=== PATIENT | female | born 1990 | race Caucasian/White ===

== ENCOUNTER → 2020-01-13 | Outpatient (CLI) | payer OTHER ==
[~2020-01-13] MED LIST: CEPHALEXIN500 M1 PO; CIPRO 500MG TA500 MG PO; LORTAB 5/500 501 TAB PO; MOTRIN 800800 MG/TAB PO; NAPROSYN500 MG PO; NO HOME MEDICATIONS; NORCO 325 MG-51 TAB PO; NORCO PO; PERCOCET 325 MG1 TA2 PO; PHENERGAN 25 TA25 MG PO; PRENATAL1 TA1 PO; PRENATAL1 TA7 PO
== END ==
LOC: ZCOL.LAB 16:11
DX: Z20.828 Contact with and (suspected) exposure to other viral communicable diseases (principal); R50.9 Fever, unspecified

== ENCOUNTER 2020-02-27 07:21 | Inpatient (IN) | payer OTHER ==
[2020-02-27] VITALS (63 sets, daily range): BP systolic 81–137; BP diastolic 50–81; PULSE 63–114; TEMP 97.8–101.6
[~2020-02-27] VITALS: Ht 172.7 cm; Wt 109.5 kg
--- NOTE | 2020-02-27 07:35 | NUR ---
Pt arrives on unit ambulatory with FOB for IOL. Changed into clean gown. EFM and toco applied. VSS. Denies vaginal bleeding, LOF, regular ctx and reports GFM. IV started in LH. Labs drawn. LR infusing. Admission assessment completed. Consents signed. Pt updated on POC. Bed locked in low position. Call light within reach. No questions or concerns at this time.
[2020-02-27 08:34] LABS: BASO # 0.1 (0.0-0.2); BASO % 0.4 % (0.0-2.0); EOS # 0.2 (0.0-0.7); EOS % 1.3 % (0-4.0); GRAN % 68.1 % (42.2-75.2); HEMATOCRIT 38.6 % (37.0-47.0); HEMOGLOBIN 12.8 g/dl (12.5-16.0); LYMPH # 3.2 (1.2-3.4); LYMPH % 21.9 % (20.0-51.0); MEAN CELL VOLUME 90 fl (80.0-100.0); MEAN CORPUSCULAR HEMOGLOBIN 30 pg (27.0-31.0); MEAN CORPUSCULAR HGB CONC 33 g/dl (33.0-37.0); MEAN PLATELET VOLUME 10.5 fl (7.4-10.4); MONO # 1.1 (0.1-0.6); MONO % 7.7 % (1.7-9.3); PLATELET COUNT 442 K/mm3 (130-400); RED BLOOD COUNT 4.27 M/mm3 (4.10-5.30); REDCELL DISTRIBUTION WIDTH-CV 13.1 % (11.5-14.5)
--- NOTE | 2020-02-27 08:43 | NUR ---
RN at bedside. Pt states feeling cramps but denies ctx. Difficulty interprettating FHR due to external ctx monitor. RN at bedside palpating fundus. 0844-Pt states feeling cramping sensation. Palpattion of fundus per this RN mild. No FHR deceleration noted during chio and resting phase. Pt repositioned LL with LR bolus infusing. TOCO monitor readjusted.
--- NOTE | 2020-02-27 11:23 | NUR ---
Pt up to bathroom and back to bed for epidural placement. Difficulty tracing FHR due to maternal position. Rn at bedside adjusting monitors. FHR audible.
--- NOTE | 2020-02-27 21:30 | NUR ---
2129- LIZZIE Stuart at the bedside for assessment of the epidural. 2134- Assisted pt up to sitting on the edge of the bed for epidural replacement. SPO monitor started. EFM intermittently tracing maternal HR as correlates with SPO2 monitor. 2146- Single shot given per LIZZIE Stuart. See anesthesia records for details. 2148- Test dose given per LIZZIE Stuart. See anesthesia records for details. 2158- Assisted pt back to supine with right wedge position. EFM and toco monitors adjusted.
[2020-02-28] VITALS (24 sets, daily range): BP systolic 95–123; BP diastolic 51–68; PULSE 74–109; TEMP 97.5–97.8
--- NOTE | 2020-02-28 02:31 | NUR ---
0231- SVE by this RN +2. Dr. Brower notified and on his way to hospital for delivery. 0238- Knox removed without complications. 0246- Dr. Brower at the bedside. Pt set up for delivery. 0248- Pushing started. 0251- of viable male . placed on mom's abdomen. Cord clamped and cut. Care of the given to nursery RN at the bedside. 0253- of placenta. Pitocin started at 333ml/hr per order and protocol. Fundus firm and lochia WNL.
--- NOTE | 2020-02-28 05:35 | NUR ---
Pt up to the bathroom with standby assist and without complications. Pt was able to void. Fe-care done. Pt transferred to room 208 ambulatory. Oriented to room, bed and call light within reach.
--- NOTE | 2020-02-28 20:00 | NUR ---
PT HAS A LOOSE SOUNDING COUGH- PT STATES SHE HAS ALLERGIES- LUNGS SOUND SLIGHTLY COARSE. PT STATES COUGH HAS NOT GOTTEN WORSE
[2020-02-29] MEDS ORDERED: MOTRIN 800800 MG/TAB PO (08:03)
[2020-02-29 08:55] VITALS: BP 108/60; PULSE 80; TEMP 97.4
--- NOTE | 2020-02-29 11:28 | NUR ---
Initial visit; Parents thanked Tape Sewing Machine Operator for offering congratulations and God's blessings for the of their son. Tape Sewing Machine Operator thanked family for choosing [facility].
--- NOTE | 2020-02-29 11:29 | NUR ---
Initial visit attempt; Nurse with family, Leak Detection Engineer left card of congratulations for the of their daughter and information regarding the availability of spiritual care at our hospital.
--- NOTE | 2020-02-29 11:31 | NUR ---
Initial visit; Parents thanked Operators Teacher for offering congratulations for the of their daughter. Operators Teacher offered God's blessings and thanked family for choosing [facility].
== END 2020-02-29 10:50 | disposition home or self-care (01) | DRG 807 ==
LOC: LDR 07:21 → OB 07:21
PROVIDERS: ADMIT Obstetrics & Gynecology
PROC: 10E0XZZ Delivery of Products of Conception, External Approach (ICD-10-PCS; principal; 2020-02-28)
PROC: 10907ZC Drainage of Amniotic Fluid, Therapeutic from Products of Conception, Via Natural or Artificial Opening (ICD-10-PCS; 2020-02-28)
DX: O69.81X0 Labor and delivery complicated by cord around neck, without compression, not applicable or unspecified (principal); Z37.0 Single live birth; Z3A.39 39 weeks gestation of pregnancy
CPT/HCPCS: J0690; J2400; J2590; J2791; J2795; J7120